=== PATIENT | female | born 1990 | race American Indian/Alaskan Native ===

== ENCOUNTER 2016-11-30 11:43 | Emergency (ER) | payer OTHER ==
[2016-11-30 12:20] VITALS: BMI 43.3
[2016-11-30 12:52] LABS: GRANULAR CAST 2 /lpf (0-1); SQUAMOUS EPITHIAL 22 /hpf (0-5); URINE BACTERIA OCC (<OCC); URINE BILIRUBIN NEGATIVE (NEGATIVE); URINE BLOOD MODERATE (NEGATIVE); URINE CALCIUM OXALATE CRYSTALS MOD /hpf (<OCC); URINE CLARITY TURBID (Clear); URINE COLOR AMBER (YELLOW); URINE GLUCOSE (UA) NEG (Normal); URINE LEUKOCYTE ESTERASE MOD Leu/uL (Negative); URINE NITRATE NEGATIVE (NEGATIVE); URINE PROTEIN 100 mg/dL (NEGATIVE); URINE UROBILINOGEN 0.2-1.0 mg/dL (0.2-1.0)
--- NOTE | 2016-11-30 14:03 | OBHP ---
Datetime: 11/30/2016 14:00 Admit Comment, IP Provider: BPs rev'd (WNL) Urine analysis : 1+ No eviud of pre-eclampsia Candidal vaginitis: terazol 7 x 7d follow up [facility] as scheduled this tuesday Labor instructions; pre-eclampsia warning Datetime: 11/30/2016 12:20 IP Adm Impression: Term, intrauterine ; No Active Labor IP Admit Plan: Observation/Evaluation Pelvic Type - PN: Adequate Extremities - PN: Normal Abdomen - PN: Normal Back - PN: Normal Breast - PN: Not Done Lungs - PN: Normal Heart - PN: Normal Thyroid - PN: Normal Neurologic - PN: Normal HEENT - PN: Normal General - PN: Normal Presentation-Admit: Vertex FHR - Baseline A Provider: 140 Membranes, Provider: Intact Contraction Comments Provider: occ Comments, ACOG Physical Exam: Large woman SSE : + white curdy dischargeno gross pooling Cx closded SVE closed Pool Provider: Negative IP Hx Assessment: The History has been Reviewed and is Current IP Chief Complaint: Suspected ruptured membranes NICHD Variability Prov Fetus A: Moderate 6-25bpm NICHD Accel Fetus A IP Provider: [id number] FHR Category Provider Fetus A: Category I NICHD Decel Fetus A IP Provider: None Dilatation, Provider: 0 Effacement, Provider: 0 Genitourinary Exam: Normal DTRs - PN: Normal
--- NOTE | 2016-11-30 14:05 | OBDCSUM ---
Datetime: 11/30/2016 13:53 Discharged to, Provider: Home Follow up at, Provider: Jean Disch Instr Activity: Normal activity Disch Instr Diet: Regular Discharge Time: 11/30/2016 13:53 Follow up in weeks, Provider: 12/03/2016 Disch Referrals: None
--- NOTE | 2016-11-30 14:59 | OBHP ---
Datetime: 11/30/2016 12:20 [place] Provider: Negative
[2016-11-30 19:12] VITALS: BP 133/78; PULSE 96; RESP 18; TEMP 99.1
== END 2016-11-30 13:57 | disposition home or self-care (01) ==
LOC: H.EROB2 11:43
DX: O47.1 False labor at or after 37 completed weeks of gestation (principal); Z3A.37 37 weeks gestation of pregnancy